=== PATIENT | female | born 2000 ===

== ENCOUNTER 2022-11-23 20:45 | Outpatient (CLI) | payer MEDICAID, SELFPAY ==
[2022-11-23] VITALS (12 sets, daily range): BP systolic 112–152; BP diastolic 59–72; PULSE 74–104; RESP 16; TEMP 36.2; BMI 32.5
--- NOTE | 2022-11-23 21:19 | USR_ITS ---
PROCEDURE INFORMATION: Exam: US , Limited and US , Transvaginal Exam date and time: 11/23/2022 9:34 PM Age: 22 years old Clinical indication: complicated by abdominal or pelvic pain; Lower; Third trimester (=28 weeks 0 days); Gestational age or lmp: 30w5d; ; Additional info: Possible rom, contractions at 30.5 weeks, cervical length and dory LABS AND CLINICAL REPORTS: Last menstrual period start date: 04/22/2022 Gestational age (Established): 30 w 5 d Estimated due date (Established): 01/27/2023 TECHNIQUE: Imaging protocol: Real-time ultrasound of the maternal uterus with image documentation. Transvaginal imaging was used for better evaluation of the fetus, adnexa, and/or cervix. Exam focused on the clinical indication. COMPARISON: No relevant prior studies available. FINDINGS: Single living fetus in cephalic position. heart activity documented by the technologist, 138 bpm. Anterior placenta. No visible placental abnormality on the provided images. Cervical length estimated with transabdominal scanning measured approximately 3.3 cm. Cervical length evaluated was also with endovaginal scanning. Best cervical length measurement with endovaginal scanning was 4.5 cm. No definite cervical canal dilation or fluid on the provided images. Amniotic fluid volume appears within normal limits for gestation, DORY 18.7 cm. measurements were not obtained at this time. Evaluation of anatomy was not performed at this time. No visible maternal adnexal abnormality. The urinary bladder was not completely evaluated/imaged at this time. Endovaginal scanning provided better visualization/evaluation of the cervix, as discussed above. US/ OB limited [id number] IMPRESSION: 1. Single living intrauterine fetus, details above. 2. Amniotic fluid volume appears within normal limits for gestation, DORY 18.7 cm. 3. Cervical length as discussed above. 4. Anterior placenta. No visible placental abnormality on the provided images. 5. Other details discussed above.
[2022-11-23 21:47] LABS: Nitrazine Paper, PH Negative
[2022-11-23 22:19] LABS: Actim Prom Negative
== END 2022-11-23 23:59 | disposition home or self-care (01) ==
LOC: OPOB 20:49 → OBGYN 20:50
PROVIDERS: Visit Provider Family Medicine
DX: O47.03 False labor before 37 completed weeks of gestation, third trimester (principal); Z3A.30 30 weeks gestation of pregnancy
CPT/HCPCS: 59025; 76815; 83986; 84112; 99211

== ENCOUNTER 2022-12-08 23:32 | Outpatient (CLI) | payer MEDICAID, SELFPAY ==
[2022-12-08 23:40] VITALS: BMI 33.5
[2022-12-08 23:41] VITALS: BP 125/70; PULSE 92; TEMP 35.7
[2022-12-08 23:49] VITALS: RESP 18
[2022-12-08 23:57] VITALS: BP 123/72; PULSE 99
[2022-12-09 00:12] VITALS: BP 115/64; PULSE 85
[2022-12-09 00:22] LABS: Basophils % 0.2 %; Eosinophils # 0.1 10^3/uL (0.0-0.8); Hemoglobin 11.3 g/dL (11.5-15.3); Lymphocytes # 2.6 10^3/uL (0.8-4.8); Lymphocytes % 20.3 %; Mean Corpuscular HGB Conc 32.3 g/dL (30.0-36.0); Mean Corpuscular Hemoglobin 26.3 pg (28.0-34.0); Mean Corpuscular Volume 81.6 fl (81-99); Mean Platelet Volume 10.3 fL (7.4-10.4); Monocytes # 0.7 10^3/uL (0.2-0.9); Monocytes % 5.9 %; Neutrophils # 9.12 10^3/uL (1.8-7.7); Neutrophils % 72.2 %; Nucleated Red Blood Cells % 0 %; Platelet Count 281 10^3/cmm (130-400); Red Blood Count 4.29 10^6/uL (4.1-5.3); Red Cell Distribution Width 13.9 % (12.1-15.1); White Blood Count 12.6 10^3/uL (4.0-10.0)
[2022-12-09 00:27] VITALS: BP 112/57; PULSE 96
[2022-12-09 00:37] LABS: Amphetamines Screen Urine Negative (Negative); Barbiturates Screen Urine Negative (Negative); Benzodiazepines Screen Urine Negative (Negative); Cocaine Screen Urine Negative (Negative); Opiate Screen Urine Negative (Negative); PCP Screen Urine Negative (Negative); THC Screen Urine Negative (Negative)
[2022-12-09 00:42] VITALS: BP 122/60; PULSE 80
[2022-12-09 00:43] LABS: Alanine Aminotransferase 9 U/L (0-33); Albumin Level 3.4 g/dL (3.5-5.2); Alkaline Phosphatase 106 U/L (35-105); Anion Gap 15.9 (5-19); Aspartate Amino Transferase 15 U/L (0-32); Blood Urea Nitrogen 7 mg/dL (6-20); Calcium 8.5 mg/dL (8.5-10.5); Carbon Dioxide 21 mmol/L (22-29); Chloride 104 mmol/L (98-107); Globulin 3.2 g/dL (1.3-4.6); Glomerular Filtration Rate 275.7 mL/min (90-130); Glucose 87 mg/dL (65-115); Osmolality Calculated 281 mOsm/kg (285-295); Potassium 3.9 mmol/L (3.5-5.1); Sodium 137 mmol/L (136-145); Total Bilirubin 0.2 mg/dL (0.15-1.2); Total Protein 6.6 g/dL (6.6-8.7); Uric Acid 3.5 mg/dL (2.4-5.7)
--- NOTE | 2022-12-09 01:04 | P.TNLD_ITS ---
OB L&D Triage Visit Information: Date of evaluation: 12/09/22 Comments/Additional reason(s) for visit: 22yo female c/o Headache at 32wk IUP. Pt admit to good FM, denies Blurred vision, CP, SOB or vaginal bleeding or LOF. Pt receives PNC at outside facility but plans to deliver here. course to date uncomplicated. NST-Cat 1 with no CTXs PIH lab unremarkable PE- defered. Evaluation: Laboratory results: Laboratory Tests 12/08/22 12/08/22 12/08/22 23:55 23:59 23:59 WBC 12.6 H RBC 4.29 Hgb 11.3 L Hct 35.0 L MCV 81.6 MCH 26.3 L MCHC 32.3 RDW 13.9 Plt Count 281 MPV 10.3 Neut % (Auto) 72.2 Lymph % (Auto) 20.3 [place] % (Auto) 5.9 Eos % (Auto) 1.0 Baso % (Auto) 0.2 Neut # (Auto) 9.12 H Lymph # (Auto) 2.6 [place] # (Auto) 0.7 Eos # (Auto) 0.1 Baso # (Auto) 0.0 Nucleated RBC % (a uto) 0 Nucleated RBCs # 0.0 Sodium 137 Potassium 3.9 Chloride 104 Carbon Dioxide 21 L Anion Gap 15.9 BUN 7 Creatinine 0.3 L GFR Calculation 275.7 H Glucose 87 Calculated Osmolal ity 281 L Uric Acid 3.5 Calcium 8.5 Total Bilirubin 0.2 AST 15 ALT 9 Alkaline Phosphata se 106 H Total Protein 6.6 Albumin 3.4 L Globulin 3.2 Urine Opiates Scre en Negative Ur Barbiturates Sc reen Negative Ur Phencyclidine S crn Negative Ur Amphetamines Sc reen Negative U Benzodiazepines Scrn Negative Urine Cocaine Scre en Negative U Marijuana (THC) Screen Negative Vital signs: Vital Signs - 24 hr 12/08/22 23:41 12/08/22 23:57 12/09/22 00:12 Temperature 96.3 F L Pulse Rate 92 99 85 Blood Pressure 125/70 123/72 115/64 12/09/22 00:27 12/09/22 00:42 Temperature Pulse Rate 96 80 Blood Pressure 112/57 122/60 Final Diagnosis Final Diagnosis (1) Normal in multigravida in third trimester: Plan: DC to home and advised to keep next apptmt. Status: Acute Code(s): Z34.83 - Encounter for supervision of other normal , third trimester Coding Level of Care Code Acute Code for Chg Fwd Diagnoses Normal in multigravida in third trimester Z34.83
[2022-12-09 01:10] VITALS: BP 122/60; PULSE 80; RESP 18
== END 2022-12-09 01:10 | disposition home or self-care (01) ==
LOC: OPOB 23:34 → OBGYN 23:35
PROVIDERS: Visit Provider Obstetrics & Gynecology
DX: O26.899 Other specified pregnancy related conditions, unspecified trimester (principal); Z3A.00 Weeks of gestation of pregnancy not specified; R51.9 Headache, unspecified; H53.8 Other visual disturbances; M54.9 Dorsalgia, unspecified
CPT/HCPCS: 12345; 36415; 59025; 80053; 80306; 84550; 85025; 99211

== ENCOUNTER 2022-12-23 18:19 | Outpatient (CLI) | payer MEDICAID, SELFPAY ==
[2022-12-23 18:29] VITALS: BMI 32.5
[2022-12-23 18:36] VITALS: BP 136/69; PULSE 85
[2022-12-23 18:40] VITALS: RESP 17
[2022-12-23 18:51] VITALS: BP 125/73; PULSE 82
== END 2022-12-23 19:02 | disposition home or self-care (01) ==
LOC: OPOB 18:19 → OBGYN 18:20
PROVIDERS: Visit Provider Obstetrics & Gynecology
DX: O26.899 Other specified pregnancy related conditions, unspecified trimester (principal); R10.2 Pelvic and perineal pain; Z3A.00 Weeks of gestation of pregnancy not specified
CPT/HCPCS: 59025; 99211

== ENCOUNTER 2023-01-03 21:47 | Outpatient (CLI) | payer MEDICAID, SELFPAY ==
[2023-01-03] VITALS (11 sets, daily range): BP systolic 103–120; BP diastolic 52–74; PULSE 103–139; RESP 18; TEMP 36.6; BMI 32.5
[2023-01-03 23:13] LABS: Add Urine Culture? No; Bacteria Urine TRACE /hpf; Bilirubin Urine Neg (Negative); Blood Urine Neg (Negative); Glucose Urine UA Norm (Normal); Ketones Urine 1+ (Negative); Leukocyte Esterase Urine Negative (Negative); Nitrate Urine Negative (Negative); Protein Urine Trace (Negative); RBC Urine 0-4 /hpf (0-2); Squamous Epithelial Cell Urine 15-25 /hpf (0-5); Urine Appearance Hazy (CLEAR); Urine Color Yellow (Yellow); Urobilinogen Urine 1 mg/dL (Negative); pH Urine 6 (5-7)
[2023-01-04 15:36] LABS: Total Volume, Urine 2975 mL
== END 2023-01-03 23:55 | disposition home or self-care (01) ==
LOC: OPOB 21:49 → OBGYN 23:42
PROVIDERS: Nurse Practitioner Women's Health; Obstetrics & Gynecology; Visit Provider Family Medicine
DX: O26.899 Other specified pregnancy related conditions, unspecified trimester (principal); R10.2 Pelvic and perineal pain; Z3A.00 Weeks of gestation of pregnancy not specified
CPT/HCPCS: 59025; 81001; 84156; 99211

== ENCOUNTER 2023-01-04 16:00 | Outpatient (CLI) | payer MEDICAID, SELFPAY ==
[2023-01-04 16:00] VITALS: BMI 33.1
[2023-01-04 16:16] VITALS: BP 106/55; PULSE 82
[2023-01-04 16:36] VITALS: BP 104/67; PULSE 82
[2023-01-04 16:42] LABS: Add Urine Microscopic? NO; Charge for UA Resulting for Rev
[2023-01-04 16:46] LABS: Basophils % 0.1 %; Eosinophils % 0.1 %; Hematocrit 34.4 % (37.0-47.0); Hemoglobin 10.9 g/dL (11.5-15.3); Lymphocytes # 1.5 10^3/uL (0.8-4.8); Lymphocytes % 20.3 %; Mean Corpuscular HGB Conc 31.7 g/dL (30.0-36.0); Mean Corpuscular Hemoglobin 25.7 pg (28.0-34.0); Mean Corpuscular Volume 81.1 fl (81-99); Mean Platelet Volume 10.9 fL (7.4-10.4); Monocytes # 0.8 10^3/uL (0.2-0.9); Monocytes % 11.3 %; Neutrophils # 4.97 10^3/uL (1.8-7.7); Neutrophils % 67.9 %; Nucleated Red Blood Cells % 0 %; Platelet Count 215 10^3/cmm (130-400); Red Blood Count 4.24 10^6/uL (4.1-5.3); Red Cell Distribution Width 14.5 % (12.1-15.1); White Blood Count 7.3 10^3/uL (4.0-10.0)
[2023-01-04 16:56] VITALS: BP 109/67; PULSE 93
[2023-01-04 16:59] LABS: Bilirubin Urine Neg (Negative); Blood Urine Neg (Negative); Glucose Urine UA Norm (Normal); Ketones Urine Negative (Negative); Leukocyte Esterase Urine Negative (Negative); Nitrate Urine Negative (Negative); Protein Urine Neg (Negative); Specific Gravity, Urine 1.005 (1.005-1.030); Urine Appearance Clear (CLEAR); Urine Color Colorless (Yellow); Urobilinogen Urine Neg (Negative); pH Urine 7 (5-7)
[2023-01-04 17:07] LABS: Alanine Aminotransferase 6 U/L (0-33); Albumin Level 3.5 g/dL (3.5-5.2); Alkaline Phosphatase 92 U/L (35-105); Anion Gap 14.9 (5-19); Aspartate Amino Transferase 15 U/L (0-32); Blood Urea Nitrogen 6 mg/dL (6-20); Calcium 8.4 mg/dL (8.5-10.5); Carbon Dioxide 20 mmol/L (22-29); Chloride 106 mmol/L (98-107); Glomerular Filtration Rate 152.9 mL/min (90-130); Glucose 95 mg/dL (65-115); Osmolality Calculated 281 mOsm/kg (285-295); Potassium 3.9 mmol/L (3.5-5.1); Sodium 137 mmol/L (136-145); Total Bilirubin 0.2 mg/dL (0.15-1.2); Total Protein 6.5 g/dL (6.6-8.7); Uric Acid 4.5 mg/dL (2.4-5.7)
[2023-01-04 17:15] LABS: UPRO/UCREAT Ratio 0.44 mg/mg CR; Urine Creatinine 9 mg/dL (28-217); Urine Protein Random 4 mg/dL
[2023-01-04 17:20] VITALS: BP 115/56; PULSE 84
== END 2023-01-04 17:44 | disposition home or self-care (01) ==
LOC: OPOB 16:08 → OBGYN 16:08
PROVIDERS: Obstetrics & Gynecology; Visit Provider Obstetrics & Gynecology
DX: O16.3 Unspecified maternal hypertension, third trimester (principal)
CPT/HCPCS: 36415; 59025; 80053; 81003; 82570; 84156; 84315; 84550; 85025; 87081; 99211

== ENCOUNTER 2023-01-29 15:21 | Inpatient (IN) | payer MEDICAID, SELFPAY ==
[2023-01-29] VITALS (22 sets, daily range): BP systolic 97–142; BP diastolic 54–89; PULSE 64–96; RESP 15; TEMP 35.8; O2SAT 97–100; BMI 34.3
[2023-01-29] MEDS: miSOPROStol 100 mcg tablet 25 MCG VAGINAL (18:29)
[2023-01-29 20:27] LABS: Basophils % 0.2 %; Eosinophils % 0.4 %; Hematocrit 39.3 % (37.0-47.0); Hemoglobin 12.2 g/dL (11.5-15.3); Lymphocytes # 2.6 10^3/uL (0.8-4.8); Lymphocytes % 23.8 %; Mean Corpuscular Volume 80.5 fl (81-99); Mean Platelet Volume 11.3 fL (7.4-10.4); Monocytes # 0.5 10^3/uL (0.2-0.9); Monocytes % 4.5 %; Neutrophils # 7.69 10^3/uL (1.8-7.7); Neutrophils % 70.7 %; Nucleated Red Blood Cells % 0 %; Platelet Count 220 10^3/cmm (130-400); Red Blood Count 4.88 10^6/uL (4.1-5.3); Red Cell Distribution Width 14.8 % (12.1-15.1); White Blood Count 10.9 10^3/uL (4.0-10.0)
[2023-01-29 21:14] LABS: Slide Review Slide Review Perform
[2023-01-29] MEDS: lactated ringers 1,000 ML 999 ML IV ×2 (22:40→23:25)
--- NOTE | 2023-01-29 23:08 | ANES.PREANE2 ---
Pre-Anesthetic Assessment Height/Weight: Height 1.63 m Weight 90.718 kg Temp Pulse Resp BP O2 Del Method 96.4 F L 73 15 138/75 Room Air 01/29/23 20:55 01/29/23 23:00 01/29/23 20:15 01/29/23 23:00 01/29/23 19:11 Familial anesthetic complications: None Was Beta Javier taken within 24 hours: N/A Was Clonidine taken within 24 hours: N/A Social No alcohol and No tobacco Exam alert, oriented x 3, clear to auscultation bilaterally and regular rate & rhythm Airway Submandibular: within normal limits Cervical ROM: within normal limits Mallampati: Class II Dentition: full History/ROS No significant history except as noted and No significant complaints Pulmonary None reported CV/HEM None reported None reported Hepatic None reported GI Gastroesophageal Reflux Disease Metabolic None reported Musc/skel None reported Neuropsych None reported Anesthetic Plan ASA status: 2 Anesthesia: Regional (specify below) (Epidural) Risk of > 500 ml blood loss (7ml/kg in children): No Medications/Allergies Home Medications Medication Instructions Recorded Confirmed Last Taken Type 1 tab PO DAILY 11/23/22 01/25/23 12/23/22 14:00 History acetaminophen 325 mg capsule 325 mg PO QID PRN Headache 12/21/22 01/25/23 12/23/22 14:00 History (Tylenol) Allergies Allergy/AdvReac Type Severity Reaction Status Date / Time No Known Allergies Allergy Verified 01/25/23 14:05 Current Medications Generic Name Dose Route Start Last Admin Trade Name Freq PRN Reason Stop Dose Admin Misoprostol 25 mcg 01/29/23 18:19 01/29/23 18:29 Misoprostol 100 Mcg Tablet VAGINAL 25 mcg Q4H PRN Administration LABOR INDUCTION PFSH Anesthesia Medical History No pertinent past medical history neghx: htn,dm,thyroid,dvt/pe PCP: none Surgical History No pertinent past surgical history Family History Denies family history of Colon cancer Ovarian cancer Diabetes Heart disease Hyperlipidemia Breast cancer Hypertension Uterine cancer Thyroid condition Stroke Female Reproductive History : 4 Data Anesthesia 01/29/23 20:10 Short CBC 01/29/23 Range/Units 20:10 WBC 10.9 H (4.0-10.0) 10^3/uL Hgb 12.2 (11.5-15.3) g/dL Hct 39.3 (37.0-47.0) % MCV 80.5 L (81-99) fl Plt Count 220 (130-400) 10^3/cmm Neut % (Auto) 70.7 % Neut # (Auto) 7.69 (1.8-7.7) 10^3/uL Cardiac Studies: No Data to Display
--- NOTE | 2023-01-29 23:45 | PM.OPHPUD ---
Labor & Delivery H&P Update Date of Procedure: January 29, 2023 Date H&P Performed: 01/25/23 H&P update information: I have reviewed H&P completed within last 30 days, I have examined patient prior to procedure and No changes to prior documentation Changes to previous documentation: The patient is being induced for labile blood pressures Admission Diagnosis: iup@ 40w,2 days, labile blood pressures, history of precipitous delivery
--- NOTE | 2023-01-29 23:46 | ANES.PROC ---
Anesthesia Procedures Procedure/Date: 01/29/23 Epidural: Time Out Performed: Yes Consents Signed: Procedure Consent and NPO Consent Consent: requested by attending/covering physician, from patient, risks and benefits reviewed and patient agrees to proceed Lumbar Level: L2-L3 Epidural position: sitting Epidural procedure: sterile prep of area, 1% lidocaine to numb the area, neg for paresthesia, test dose given, 1.5% xylocaine 1:200k epi (3 mL/2mL), 0.2% Ropivacaine bolus ml (5), placed PCEA, no systemic response, sterile dressing applied, L.U.D. no apparent complications and 0.2% Ropiavacaine @ mls/hr (11) Additional Comments: Attempt x 2. RICHELLE 5cm, catheter threaded to 10cm
[2023-01-30] VITALS (33 sets, daily range): BP systolic 120–144; BP diastolic 56–89; PULSE 60–126; RESP 16–18; TEMP 36.1–37; O2SAT 98–100
[2023-01-30] MEDS: dextrose 5%-lactated ringers 1,000 ML 999 ML IV (00:26)
--- NOTE | 2023-01-30 00:53 | P.PCNOB_ITS ---
Delivery Note: Date of delivery: January 30, 2023 Pre-delivery diagnoses: iup@ 40w3d, labile blood pressures. History of precipitous delivery Post-delivery diagnoses: same-delivered Procedure: Delivering Physician: Darrick Estimated blood loss (mL): 50 Findings: term female in the cephalic presentation Pre-Delivery Course: The patient presented for induction of labor. She had one dose of cytotec placed. She became uncomfortable and received an epidural for pain management. Once the epidural and catheter were placed, the patient was found to be 6cm dilation. She quickly progressed to complete. At complete cervical dilation, she had SROM. She began pushing Delivery: The patient had complete cervical dilation and began to push. The head delivered in the straight OP position over an intact perineum under epidural anesthesia. The nose and mouth were bulb suctioned. The shoulders and body del ivered atraumatically. The baby was placed onto the mother's abdomen. There was a body cord, which was reduced after delivery. The cord was clamped and cut. The placenta delivered spontaneously. It was inspected and found to be intact. Inspection of the perineum revealed no lacerations and no repairs were required. Estimated blood loss 50 mL. Apgars on baby were 8 at 1 minute and 9 at 5 minutes. Weight of baby is 6 pounds 15 ounces. Mother and baby were stable post delivery. History History History 4 Term 3 0 Miscarriages/Ectopic 0 Living Children 3 Coding Level of Care Code Acute Code for Chg Fwd Diagnoses
--- NOTE | 2023-01-30 07:55 | ANE.PACU2 ---
Inpatient post-anesthesia follow up: Airway intact: Yes Vital signs: Temperature 97.8 F Pulse Rate 82 Respiratory Rate 18 Blood Pressure 131/76 Pulse Oximetry 99 Oxygen Delivery Me thod Room Air Oxygen Flow Rate Fraction of Inspir ed Oxygen Hydration adequate: Yes Nausea and vomiting: No Pain level: 1 Mental status: Baseline
[2023-01-30] MEDS: docusate sodium 100 mg Capsule PO (08:46)
[2023-01-30] MEDS: prenatal vitamin Capsule 1 CAP PO (08:46)
[2023-01-30] MEDS: ibuprofen 800 mg tablet PO ×3 (08:46→21:42)
[2023-01-30 13:49] LABS: Hematocrit 34.1 % (37.0-47.0); Mean Corpuscular HGB Conc 32.3 g/dL (30.0-36.0); Mean Corpuscular Hemoglobin 25.9 pg (28.0-34.0); Mean Corpuscular Volume 80.2 fl (81-99); Mean Platelet Volume 10.8 fL (7.4-10.4); Platelet Count 230 10^3/cmm (130-400); Red Blood Count 4.25 10^6/uL (4.1-5.3); Red Cell Distribution Width 15.1 % (12.1-15.1); White Blood Count 11.5 10^3/uL (4.0-10.0)
[2023-01-31 04:48] VITALS: BP 131/76; PULSE 82; RESP 18; TEMP 36.6; O2SAT 99
--- NOTE | 2023-01-31 08:05 | P.DS_ITS ---
Discharge Providers Date of Admission: 01/29/23 15:21 Date of Discharge: January 31, 2023 Attending Provider at Admission: Todd Vega MD Attending Provider at Discharge: Todd Vega MD Reason for Visit Reason for Visit: IOL Hospital Course Hospital Course The patient was admitted for induction of labor at term. This was patient requested, but at times, the patient did have labile blood pressures. She had spontaneous delivery of a term infant. She did well and requested discharge on day #1 Physical Exam Narrative: The patient is doing well today. No concerns. is going well. Const: COMMON NORMALS: no acute distress, patient oriented x3, no limitations, healthy appearing, alert and well nourished ORIENTATION/CONSCIOUSNESS: Yes awake, Yes oriented to person, Yes oriented to place and Yes oriented to time Resp: COMMON NORMALS: normal respiratory effort EFFORT & INSPECTION: Yes able to speak in complete sentences GI: COMMON NORMALS: Soft to palpation and non-tender PALPATION: Yes Soft to palpation Extremity: COMMON NORMALS: no calf tenderness Neuro: COMMON NORMALS: patient oriented x3 SENSORIUM/ORIENTATION: Yes alert, Yes oriented to person, Yes oriented to place and Yes oriented to time Psych: COMMON NORMALS: mental status grossly normal, Normal thought process present, cooperative, normal affect and speech normal SPEECH: Yes normal speech THOUGHT PROCESS: Normal thought process present Urinary Catheter Management: [place]: Cath Placed During This Visit: yes, but has since been removed by the nurse Reason for Continuing Indwelling Catheter: Decision to DC Catheter Urinary Catheter Date of Insertion: 01/30/23 Urinary Catheter Time of Insertion: 00:10 Date Urinary Catheter Removed: 01/30/23 Time Urinary Catheter Discontinued: 00:37 Discharge Data Studies Completed and Pending Laboratory Results WBC 11.5 10^3/uL (4.0-10.0) H 01/30/23 13:21 RBC 4.25 10^6/uL (4.1-5.3) 01/30/23 13:21 Hgb 11.0 g/dL (11.5-15.3) L 01/30/23 13:21 Hct 34.1 % (37.0-47.0) L 01/30/23 13:21 MCV 80.2 fl (81-99) L 01/30/23 13:21 MCH 25.9 pg (28.0-34.0) L 01/30/23 13:21 MCHC 32.3 g/dL (30.0-36.0) 01/30/23 13:21 RDW 15.1 % (12.1-15.1) 01/30/23 13:21 Plt Count 230 10^3/cmm (130-400) 01/30/23 13:21 MPV 10.8 fL (7.4-10.4) H 01/30/23 13:21 Neut % (Auto) 70.7 % 01/29/23 20:10 Lymph % (Auto) 23.8 % 01/29/23 20:10 [place] % (Auto) 4.5 % 01/29/23 20:10 Eos % (Auto) 0.4 % 01/29/23 20:10 Baso % (Auto) 0.2 % 01/29/23 20:10 Neut # (Auto) 7.69 10^3/uL (1.8-7.7) 01/29/23 20:10 Lymph # (Auto) 2.6 10^3/uL (0.8-4.8) 01/29/23 20:10 [place] # (Auto) 0.5 10^3/uL (0.2-0.9) 01/29/23 20:10 Eos # (Auto) 0.0 10^3/uL (0.0-0.8) 01/29/23 20:10 Baso # (Auto) 0.0 10^3/uL (0.0-0.1) 01/29/23 20:10 Nucleated RBC % (auto) 0 % 01/29/23 20:10 Nucleated RBCs # 0.0 /100WBC 01/29/23 20:10 Vitals Last Vital Signs Temp 97.8 F 01/31/23 04:48 Pulse 82 01/31/23 04:48 Resp 18 01/31/23 04:48 BP 131/76 01/31/23 04:48 Pulse Ox 99 01/31/23 04:48 O2 Del Method Room Air 01/31/23 04:48 Discharge Plan Discharge Condition: Stable Prescriptions: Continued acetaminophen [Tylenol] 325 mg capsule 325 mg PO QID PRN (Reason: Headache) 1 tab PO DAILY Discharge Orders: Discharge Order (Routine); Ordered 01/31/23 Ordered By: Lorenza Hollingsworth Patient Instructions: Depression (DC), Bleeding (DC), Preeclampsia and Eclampsia After Delivery (GEN), Hemorrhage (DC), OB Discharge Report, OB Food/Drug Interaction Guide, OB Care at Home, Opioid Safety, OB Home Care, OB Proud Parent Packet, OB Vaginal Deliveries - [facility] Discharge Attestations Time Spent in Discharge Care*: less than 30 min Quality Metrics Clinical Quality Measures [ No reported AMI, CVA or VTE this stay] Coding Level of Care Code Acute Code for Chg Fwd Diagnoses
[2023-01-31 10:05] VITALS: BP 120/82; PULSE 86; RESP 16; TEMP 36.4
== END 2023-01-31 11:50 | disposition home or self-care (01) | DRG 807 ==
LOC: OPOB 15:21 → OBGYN 15:21
PROVIDERS: Obstetrics & Gynecology; Admitting Provider Obstetrics & Gynecology; Visit Provider Obstetrics & Gynecology
DX: O48.0 Post-term pregnancy (principal); Z37.0 Single live birth; Z3A.40 40 weeks gestation of pregnancy; R09.89 Other specified symptoms and signs involving the circulatory and respiratory systems; O75.89 Other specified complications of labor and delivery
CPT/HCPCS: 36415; 51702; 59025; 59409; 85025; 85027; J2795; J7040; J7120; J7121